=== PATIENT | female | born 1980 | race Caucasian/White ===

== ENCOUNTER 2016-07-31 16:02 | Emergency (ER) | payer BC ==
[2016-07-31 16:48] VITALS: BP 113/67
--- NOTE | 2016-07-31 17:51 | UC ---
Throat Pain/Nasal Paco HPI - HPI Summary HPI Summary: complaint of cough and nasal congestion feel feverish but hasn't checke dher temp ears hurt, sore throat taking ibuprofen constantly feels achy all over denies N/V/D right breast pain that started 2-3 days ago when she expresses milk sometimes she is getting some bleeding has been nursing more on the right side and pumping more but it hasn't helped entire right breast feels sore denies pain in axilla - History of Current Complaint Chief Complaint: UCGeneralIllness Stated Complaint: SINUS ISSUE BREAST ISSUE Time Seen by Provider: 07/31/16 17:40 Hx Obtained From: Patient Hx Last Menstrual Period: none yet after child - Allergies/Home Medications Allergies/Adverse Reactions: Allergies Allergy/AdvReac Type Severity Reaction Status Date / Time Amoxicillin Allergy Mild Rash Verified 07/31/16 16:40 Home Medications: Home Medications Ibuprofen TAB* [Motrin TAB* 600 MG] 800 mg PO Q6H PRN 07/31/16 [History Confirmed 07/31/16] Pseudoephedrine HCl [Sudafed 24 Hour] 240 mg PO DAILY PRN 07/31/16 [History Confirmed 07/31/16] PMH/Surg Hx/FS Hx/Imm Hx Previously Healthy: Yes Endocrine History Of: Denies: Diabetes, Thyroid Disease Cardiovascular History Of: Denies: Cardiac Disorders, Hypertension Respiratory History Of: Denies: COPD, Asthma GI/ History Of: Denies: Ulcer Psychological History Of: Reports: Anxiety Cancer History Of: Reports: Cervical Cancer - CERVICAL DYSPLASIA - Surgical History Surgical History: Yes Surgery Procedure, Year, and Place: PARTIAL CERVICAL REMOVAL - Family History Known Family History: Negative: Cardiac Disease, Hypertension, Diabetes Family History: NON CONTRIBUTORY - Social History Occupation: Employed Full-time Lives: With Family Alcohol Use: None Substance Use Type: None Substance Use Comment - Amount & Last Used: RARE Smoking Status (MU): Former Smoker Type: Cigarettes Amount Used/How Often: 1/2 ppd Length of Time of Smoking/Using Tobacco: just started back up again after quitting for 6 months Have You Smoked in the Last Year: Yes - Immunization History Most Recent Influenza Vaccination: 01/17/16 Most Recent Tetanus Shot: 10/25/15 Most Recent Pneumonia Vaccination: none Review of Systems Constitutional: Fever Skin: Negative Eyes: Negative ENT: Sore Throat, Ear Ache, Nasal Discharge Respiratory: Cough Cardiovascular: Negative Gastrointestinal: Negative Genitourinary: Negative Motor: Negative Neurovascular: Negative Musculoskeletal: Negative, Other: - right breast pain Neurological: Negative Psychological: Negative All Other Systems Reviewed And Are Negative: Yes Physical Exam Triage Information Reviewed: Yes Appearance: No Pain Distress, Well-Nourished Vital Signs: Initial Vital Signs Temp 97.6 F 07/31/16 16:42 Pulse 75 07/31/16 16:42 Resp 16 07/31/16 16:42 BP 113/67 07/31/16 16:42 Pulse Ox 100 07/31/16 16:42 Vital Signs Reviewed: Yes Eyes: Positive: Conjunctiva Clear ENT: Positive: Pharyngeal erythema, Nasal congestion, Nasal drainage, TMs normal Neck: Positive: No Lymphadenopathy Respiratory: Positive: Lungs clear, Normal breath sounds, No respiratory distress, No accessory muscle use Cardiovascular: Positive: RRR, No Murmur, Pulses Normal, Brisk Capillary Refill Abdomen Description: Positive: Nontender, Soft Bowel Sounds: Positive: Present Musculoskeletal Exam: Normal Neurological Exam: Normal Psychological Exam: Normal Skin: Positive: Other - right breast with tenderness and erythema around nipple and erythemaous streak anterior medial side of breast- no bleeding or discharge except milk from breat no axilla tenderness Throat Pain/Nasal Course/Dx - Course Course Of Treatment: exam completed. will treat for mastitis with bactrim d./ t allergy to PCN as indicated by up to date as os over 6 months without immunocompromise - Differential Dx/Diagnosis Provider Diagnoses: URI. mastitis- right breast Discharge - Discharge Plan Condition: Stable Disposition: HOME Prescriptions: Sulfamethox/Trimethoprim DS* [Bactrim DS 800/160 TAB*] 1 tab PO BID #20 tab Patient Education Materials: Mastitis (ED), Upper Respiratory Infection (ED) Referrals: No Primary Care Phys,NOPCP [Primary Care Provider] - [facility] [place] [facility] [Outside] Additional Instructions: Please take antibiotic as directed continue to breastfeed or use breastpump regularly apply warm compresses TID Increase fluids and rest Take acetaminophen or ibuprofen for fever or pain Please review your discharge instructions. If your symptoms do not improve please call your primary care provider or return to urgent care.
== END 2016-07-31 18:25 | disposition home or self-care (01) ==
LOC: UCEAST 16:02
DX: J06.9 Acute upper respiratory infection, unspecified (principal); N61.0 Mastitis without abscess; Z88.1 Allergy status to other antibiotic agents; F17.210 Nicotine dependence, cigarettes, uncomplicated
CPT/HCPCS: 99212; G0463

== ENCOUNTER 2018-01-01 13:21 | Inpatient (IN) | payer BC ==
[2018-01-01] MEDS ORDERED: Oxytocin in LR* 20 UNITS/1,000 ML BAG IVPB SCH (15:00)
--- NOTE | 2018-01-01 15:12 | HP ---
General Information - General Information Maternal Age: 37 Grav: 4 Para: 1 SAB: 1 IEA: 1 Estimated Due Date: 12/25/17 Determined By: LMP Gestational Age in Weeks/Days: 41 0/7 Maternal Blood Type and Rh: O Positive - Results this Serology/RPR Result: Non-Reactive Rubella Result: Non-Immune HBsAg Result: Negative HIV Result: Negative GBS Culture Result: Negative Past Medical History Delivery History: Hx Uncomplicated Vaginal Delivery Pertinent Past Medical History: See Records - depression, anxiety, migraines Pertinent Past Surgical History: See Records - canthoplasty Pertinent Family History: See Records - mother- CP, deaf, cleft palate , spinal stenosis, father- DM, developmental delay - Antepartal Records Antepartal Records: Reviewed, Complicated by: - age 37, 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), resolved marginal previa Review of Systems Constitutional: Comfortable CV Complaint: No Respiratory: Shortness of Breath: No Gastrointestinal: No Nausea/Vomiting, Normal Bowel Movement Genitourinary: No Dysuria, No Bleeding Musculoskeletal: No Complaint Neurological: No Headache, No Visual Changes Movement: Normal Exam Allergies/Adverse Reactions: Allergies amoxicillin Allergy (Verified 01/01/18 14:02) Rash T-37.0, P-86, R-17, BP 104/66, O2-100% - Measurements Height: 5 ft 7 in Weight: 91.172 kg Weight in lbs: 201.204627 Body Mass Index (BMI): 31.4 Pre- Weight: 65.771 kg Weight Gained This : 56 lbs and 0 ozs - Exam Breast: Breast Exam Deferred CVA: No CVA Tenderness Extremities: No Edema Heart: Normal Rhythm/Heart Sounds HEENT: No Significant Findings Lungs: Clear Bilaterally Rectal: Rectal Exam Deferred Reflexes: DTR 2+ Thyroid: No Thyromegaly - Abdominal Exam Abdomen Exam: Non-Tender, Fundal Height Consistent with Dates - Ultrasound/Biophysical Profile Ultrasound Status: Not Done Targeted Exam Findings See L&D Outpatient Visit Provider Note for Findings: N/A Estimated Weight: 8# Cervical Exam: 2cm Effacement: 60% Station: -2 Presenting Part: Vertex Membrane Status: Intact Bleeding/Discharge: None EFM Findings - External Monitor Findings Baseline Heart Rate: 135 External Monitor Findings: Accelerations Present, No Pattern of Variable or Late Decelerations, Variability Moderate, Baseline Stable Contractions: None Assessment/Plan - Assessment 37 year old at 41 weeks gestation with no evidence of acidemia, here for induction of labor for postdates - Obstetrical Risk Factors Obstetrical Risk Factors: Post-Dates - Plan Plan: Induction, Admit - Anticipate Vaginal Delivery Plan Comment: Discussed options with pt including cervical ripening vs trial of Pitocin. Pt strongly prefers trial of Pitocin, will initiate. - Date/Time of Admission Date of Admission: 01/01/18 Time of Admission: 14:55
[2018-01-01 15:52] LABS: ABS Basophils 0.1 10^3/ul (0-0.2); ABS Eosinophils 0 10^3/ul (0-0.6); ABS Lymphocytes 1.5 10^3/ul (1.0-4.8); ABS Monocytes 0.6 10^3/ul (0-0.8); ABS Nucleated RBC 0 10^3/ul; Eosinophil % 0.5 % (0-6); Hematocrit 33 % (35-47); Hemoglobin 11.2 g/dl (12.0-16.0); Lymphocyte % 16.3 % (25-47); Mean Corpuscular HGB Conc 34 g/dl (31-36); Mean Corpuscular Hemoglobin 31 pg (27-31); Mean Corpuscular Volume 89 fL (80-97); Mean Platelet Volume 9.3 um3 (7.4-10.4); Nucleated Red Blood Cells % 0.2; Platelet Count 149 10^3/ul (150-450); Red Blood Count 3.67 10^6/ul (4.00-5.40); Red Cell Distribution Width 17 % (10.5-15); White Blood Count 9.2 10^3/ul (3.5-10.8)
[2018-01-02] MEDS ORDERED: EPHEDrine (Pressors)* 50 MG/ML VIAL IV PUSH PRN (01:45)
[2018-01-02] MEDS ORDERED: Famotidine TAB* 20 MG PO PRN (01:45)
[2018-01-02] MEDS ORDERED: Sodium Citrate/Citric Acid* 15 ML UDC PO PRN (01:45)
[2018-01-02] MEDS ORDERED: Phenylephrine IV* 40 MCG/ML 10 ML SYRINGE IV PUSH PRN (01:45)
[2018-01-02] MEDS ORDERED: OBEPIDURAL* 250 ML EPIDURAL SCH (02:00)
[2018-01-02] MEDS ORDERED: Oxytocin in LR* 20 UNITS/1,000 ML BAG IVPB SCH (06:00)
[2018-01-02] MEDS ORDERED: Acetaminophen TAB* 325 MG PO PRN (06:00)
[2018-01-02] MEDS ORDERED: Dibucaine 1% 28.35 GM TUBE PR PRN (06:00)
[2018-01-02] MEDS ORDERED: Glycerin ADULT SUPP PR PRN (06:00)
[2018-01-02] MEDS ORDERED: Witch Hazel PAD* JAR TOPICAL PRN (06:00)
--- NOTE | 2018-01-02 06:11 | PROCNOTE ---
[facility] OB: Delivery Note - Delivery A Date of : 01/02/18 Time of : 05:13 [place] Sex: Male Weight at : 3.203 kg Score 1 Minute: 8 Score 5 Minutes: 8 Gestational Age in Weeks and Days at Delivery: 41 Weeks and 1 Days Delivery Method: Spontaneous Vaginal Labor: Induced Did Patient attempt ?: N/A, No Previous Amniotic Fluid: Clear Estimated Blood Loss: 200 Anesthesia/Analgesia: CEI for Labor Delivered By: Melissa Back - Nursery Level of Nursery: Regular/Bedside - Perineum Perineal Injury: 1st Degree Perineal Repair: By Delivering Practioner - Events Delivery Events of Note: Pitocin During Labor, Supplemental O2 to Mother - Additional Delivery Notes Additional Delivery Notes: Pt admitted for induction of labor at 41 0/7 weeks gestation. Cervix found to be favorable, so induction initiated with IV Pitocin. Pt progressed steadily into active labor. She used the tub for pain relief initially, then requested and received an epidural with good relief. Pt progressed until she felt the urge to push, at which time AROM performed revealing clear fluid. Pt pushed with good effort. Slow controlled delivery of head, shoulders followed without difficulty. somersaulted through loose nuchal cord x1. Infant to maternal abdomen, dried and stimulated, suctioned with bulb. Placenta delivered spontaneously, celena side with trailing membranes, intact. Perineum with first degree laceration. Repair completed using 3-0 Vicryl Rapide suture, resulting in good hemostasis and tissue approximation. Infant . Mother and baby stable and resting at this time.
[2018-01-02] MEDS ORDERED: Measles, Mumps,Rubella VACC* 0.5 ML/VIAL SUBCUT ONE (06:28)
[2018-01-02] MEDS: Ibuprofen TAB* 600 MG PO PRN ×3 (08:54→21:22)
[2018-01-02] MEDS: Docusate CAP* 100 MG PO SCH ×3 (08:54→21:22)
[2018-01-03 06:38] LABS: ABS Basophils 0 10^3/ul (0-0.2); ABS Eosinophils 0.1 10^3/ul (0-0.6); ABS Lymphocytes 2.2 10^3/ul (1.0-4.8); ABS Monocytes 0.8 10^3/ul (0-0.8); ABS Neutrophils 7.2 10^3/ul (1.5-7.7); ABS Nucleated RBC 0 10^3/ul; Eosinophil % 1.4 % (0-6); Hematocrit 30 % (35-47); Hemoglobin 10.2 g/dl (12.0-16.0); Lymphocyte % 21.5 % (25-47); Mean Corpuscular HGB Conc 34 g/dl (31-36); Mean Corpuscular Hemoglobin 31 pg (27-31); Mean Corpuscular Volume 90 fL (80-97); Mean Platelet Volume 8.7 um3 (7.4-10.4); Nucleated Red Blood Cells % 0; Platelet Count 139 10^3/ul (150-450); Red Blood Count 3.34 10^6/ul (4.00-5.40); Red Cell Distribution Width 17 % (10.5-15); White Blood Count 10.5 10^3/ul (3.5-10.8)
[2018-01-03] MEDS: Docusate CAP* 100 MG PO SCH ×3 (07:46→19:47)
[2018-01-03] MEDS: Ibuprofen TAB* 600 MG PO PRN ×3 (07:46→19:53)
[2018-01-03] MEDS ORDERED: Ferrous Gluconate TAB* 324 MG TAB PO SCH (09:00)
[2018-01-04 08:52] VITALS: BP 116/61
[2018-01-04] MEDS: Ibuprofen TAB* 600 MG PO PRN (10:32)
[2018-01-04] MEDS: Docusate CAP* 100 MG PO SCH (10:33)
== END 2018-01-04 11:48 | disposition home or self-care (01) | DRG 560 ==
LOC: MCHOBOUT 13:21 → MCHOB 14:55
PROVIDERS: ADMIT Midwife; ATTEND Midwife
PROC: 3E033VJ Introduction of Other Hormone into Peripheral Vein, Percutaneous Approach (ICD-10-PCS; principal; 2018-01-01)
PROC: 10907ZC Drainage of Amniotic Fluid, Therapeutic from Products of Conception, Via Natural or Artificial Opening (ICD-10-PCS; 2018-01-01)
PROC: 10E0XZZ Delivery of Products of Conception, External Approach (ICD-10-PCS; 2018-01-01)
PROC: 0HQ9XZZ Repair Perineum Skin, External Approach (ICD-10-PCS; 2018-01-01)
DX: O48.0 Post-term pregnancy (principal); O98.52 Other viral diseases complicating childbirth; B00.9 Herpesviral infection, unspecified; Z88.0 Allergy status to penicillin; Z3A.41 41 weeks gestation of pregnancy; Z37.0 Single live birth; O70.0 First degree perineal laceration during delivery
CPT/HCPCS: 36415; 85025; 86850; 86900; 86901; 90686; 90707; A9270-GY